=== PATIENT | male | born 1985 | race Hispanic/Latino ===

== ENCOUNTER 2017-02-19 22:18 | Emergency (ER) | payer MEDICAID ==
[2017-02-19 22:27] VITALS: BP 140/73; PULSE 82; RESP 18; TEMP 98.3; O2SAT 100
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
== END 2017-02-20 | disposition home or self-care (01) ==
LOC: H.ER 22:18
DX: R51 Headache (principal); R42 Dizziness and giddiness; S06.0X0A Concussion without loss of consciousness, initial encounter; Y04.0XXA Assault by unarmed brawl or fight, initial encounter; Y92.89 Other specified places as the place of occurrence of the external cause